=== PATIENT | female | born 1930 | race Caucasian/White ===

== ENCOUNTER 2016-08-23 20:54 | Emergency (ER) | payer MEDICARE, OTHER ==
[2016-08-23 20:54] VITALS: BMI 22.6
[2016-08-23 21:05] VITALS: TEMP 98.1
[2016-08-23 21:38] LABS: AUTOMATED EOSINOPHIL 1.5 % (0-5)
[2016-08-23 21:48] LABS: PARTIAL THROMB. TIME 21.8 SEC (22-35)
[2016-08-23 21:52] LABS: AUTOMATED BASOPHIL 1.2 % (0-2); AUTOMATED LYMPH 26.1 % (17-44); AUTOMATED MONOCYTE 15.2 % (3-10); MPV 8.8 fL (7.4-10.4)
[2016-08-23 21:55] LABS: BLOOD UREA NITROGEN 25 MG/DL (7-17); CALC CORRECTED 9.3 MG/DL (8.4-10.2); CALCIUM 8.9 MG/DL (8.4-10.2); CALCULATED OSMOLALITY 274 MOs/Kg (270-290); CHLORIDE 102 mEq/L (98-107); CPK TOTAL WITH POSSIBLE MB 62 IU/L (30-134); GLUCOSE 122 MG/DL (70-99); SODIUM LEVEL 140 mEq/L (137-146); TOTAL PROTEIN 6.7 G/DL (6.3-8.2)
--- NOTE | 2016-08-23 22:05 | DIRPT ---
CLINICAL DATA: 86-year-old female with a history of chest pain EXAM: CHEST - 2 VIEW COMPARISON: 08/16/2016, 01/11/2009, chest CT 01/11/2009 FINDINGS: Cardiomediastinal silhouette unchanged in size and contour since the comparison. Overlying mixed lucent and soft tissue density of the left heart, partially obscuring the border. Lateral view demonstrates air-fluid level with lucency and soft tissue opacity. No pneumothorax. No right-sided pleural effusion. Blunting at the left costophrenic angle. Chronic interstitial opacities on the right. No displaced fracture. Accentuated thoracic kyphotic curvature. Configuration of the vertebral bodies is relatively unchanged. IMPRESSION: Re- demonstration of hiatal hernia and associated lung changes at the left base. Superimposed small pleural effusion or sequela of aspiration pneumonia/ pneumonitis difficult to exclude. There is no evidence of a right-sided lobar pneumonia. Signed, Kashmir Lopez DO [facility] Electronically Signed By: Kashmir Lopez D.O. On: 08/23/2016 22:02
[2016-08-23] MEDS ORDERED: CEFTRIAXONE 1 GM in D5W 100 ML IV ONE (22:07)
[2016-08-23 22:23] LABS: LEUKOCYTES/URINE NEG (NEGATIVE); NITRITE/URINE NEG (NEGATIVE); URINE OCCULT BLOOD NEG (NEG/TRACE)
--- NOTE | 2016-08-23 22:40 | EDPRACDOC ---
- General Information Chief Complaint: Chest Wall Pain Stated Complaint: ABD PAIN Time Seen by Provider: 08/23/16 21:08 Information [facility] Mode of Arrival: Ambulance Home Medications: Home Medications Acetaminophen [Mapap] 1,000 mg PO Q6H PRN 08/16/16 Aspirin (Enteric Coated) [Ecotrin] 81 mg PO QHS 08/16/16 Calcium Carbonate/Vitamin D3 [Calcium 600-Vit D3 800 Tablet] 2 tab PO QAM Cholecalciferol (Vitamin D3) [Vitamin D3] 2,000 unit PO DAILY 08/16/16 Donepezil HCl 10 mg PO QHS 08/16/16 Escitalopram Oxalate [Lexapro] 10 mg PO QAM 08/16/16 Furosemide [Lasix] 40 mg PO QAM 08/16/16 Guaifenesin/Dextromethorphan [Q-Tussin Dm Syrup] 5 ml PO Q4H PRN 08/16/16 Lamotrigine 25 mg PO BID 08/16/16 Levofloxacin [Levaquin] 500 mg PO DAILY 08/16/16 Levothyroxine [Synthroid, Levoxyl] 25 mcg PO QAM 08/16/16 Lisinopril 10 mg PO QAM 08/16/16 Multivits-Min/FA/Lycopene/Lut [Certavite Sr-Antioxidant Tab] 1 tab PO QHS Omeprazole [Prilosec] 20 mg PO QAM 08/16/16 Ondansetron HCl [Zofran] 8 mg PO Q8H PRN 08/16/16 Potassium Chloride [Klor-Con M10] 10 meq PO QAM 08/16/16 Travoprost [Travatan Z] 1 drop OU QHS 08/16/16 Levofloxacin [Levaquin] 750 mg PO DAILY #7 tablet 08/23/16 Allergies/Adverse Reactions: Allergies Allergy/AdvReac Type Severity Reaction Status Date / Time No Known Allergies Allergy Verified 08/16/16 15:01 - History of Present Illness Onset: 1944 today HPI: PT PRESENTS FROM LOCAL NURSING FACILITY DUE TO CHEST PAIN. PT HAS SEVERE DEMENTIA AND UPON ARRIVAL IS NOT AWARE OF WHY SHE IS AT THE HOSPITAL AND DENIES ANY PAIN. FACILITY STATES THE PATIENT HAD BRONCHITIS LAST WEEK BUT HAD NO TREATMENT. Chest Pain Location: Reports: No Pain Pain Radiation: Reports: None Symptoms Occur: Denies: Gradually, Suddenly, At Rest, With light exertion, With heavy exertion, While asleep, Medication-ingestion, Drug-ingestion, Other PE Risk Factors: Reports: None Medications within 24 Hours: Reports: None Prehospital Care: Reports: IV, Monitor Pain Came On: Reports: No Pain Pain Status: No Pain Pain Description: Reports: None Pain Severity: None Pain Worsens With: Reports: Nothing Pain Improves With: Reports: Nothing Associated Signs and Symptoms: Reports: None ED Past Medical History - History Reviewed Yes Nurses notes reviewed and agree except as marked - Patient Medical History Neurological History: Reports: Dementia Cardiac History: Reports: Hypertension GI/ History: Reports: Gastroesophageal Reflux Musculoskeletal History: Reports: Osteoarthritis Psychological History: Comment Only: Depression (unknown) - Social Medical History Smoking Status: Current status unknown EDM Review of Systems - Review of Systems ROS Negative Except as Marked: Yes All systems reviewed and were negative except as marked - Physical Exam Constitutional: Alert, Confused (PER PATIENT NORM) Oriented to: Not Oriented (PER PT NORM) Last recorded Vital Signs: Last Vital Signs Temp 98.1 F 08/23/16 20:57 Pulse 75 08/23/16 20:57 Resp 20 08/23/16 20:57 BP 104/51 L 08/23/16 20:57 Pulse Ox 93 08/23/16 20:57 Oxygen Pulse Oxygen Saturation 93 O2 Device Room Air Oxygen Flow Rate Fraction of Inspired Oxygen ( FIO2) - HEENT Head: Normal ( normocephalic) Eye Exam: Normal (PERRL, EOMI, Sclera white) Oropharynx: Normal (Pharynx:Moist without exudate,Gums-no swelling) Nose: No Symptoms Reported (septum midline) Neck: Normal (FROM, trachea at midline) - Respiratory/Cardiovascular Respiratory: Diminished Cardiovascular: Normal (RRR without murmur, gallop or rub) - GI Auscultation: Normal (NABS) Palpation: Normal (Soft,No rebound or guarding, non distended) Tenderness: Non tender Holliday's Sign: Negative Rectal Exam: Deferred - Musculoskeletal Back: Normal (Non-Tender) Extremities: Normal (Normal tone, Pulses 2+ No cyanosis or edema, FROM) - Integumentary Skin: Normal, Warm, Dry Lymphatics: Normal (no adenopathy) - Neurologic Memory Impaired: Normal Motor Function: Normal (Normal tone, Pulses 2+ No cyanosis or edema, FROM) Cranial Nerve: Normal (CN II-X11 intact sensation, strength 5/5) Cerebellar: Normal Mood Description: Normal Perception: Normal ED Chest Pain Exam - Respiratory/Cardiovascular Respiratory: Diminished Cardiovascular/Chest: Normal Radial Pulse: Normal Femoral Pulse: Normal Pedal Pulse: Normal Carotid Arteries: Normal Edema: negative: 1+, 2+, 3+, 4+, 5, 6 Chest Palpation: Normal - Differential Diagnosis Pneumonia - Action Patient received Aspirin within last 24 hours?: Yes ASA given in the ED: No Patient received Beta Silvestre within last 24hrs: No - Results All Results Reviewed and Normal except as Highlighted below: Yes 08/23/16 21:29 08/23/16 21:29 WBC 8.4 xk/uL (3.8-10.8) 08/23/16 21: RBC 4.05 xM/uL (4.20-5.40) L 08/23/16 21:29 Hgb 12.2 g/dL (12.0-16.0) 08/23/16 21:29 Hct 35.9 % (36-47) L 08/23/16 21:29 MCV 89 fL (81-99) 08/23/16 21: MCH 30.1 pg (27-32) 08/23/16 21:29 MCHC 33.9 g/dl (33-36) 08/23/16 21:29 RDW 13.7 % (11.5-14.5) 08/23/16 21:29 Plt Count 211 xk/uL (130-400) 08/23/16 21:29 MPV 8.8 fL (7.4-10.4) 08/23/16 21:29 Neut % (Auto) 56.0 % (45-76) 08/23/16 21: Lymph % (Auto) 26.1 % (17-44) 08/23/16 21:29 Wheeler % (Auto) 15.2 % (3-10) H 08/23/16 21:29 Eos % (Auto) 1.5 % (0-5) 08/23/16 21:29 Baso % (Auto) 1.2 % (0-2) 08/23/16 21:29 Absolute Neuts (auto) 4.70 xk/uL (1.7-8.2) 08/23/16 21:29 Absolute Lymphs (auto) 2.18 xk/uL (0.65-4.75) 08/23/16 21:29 PT 10.7 SEC (9.2-11.2) 08/23/16 21:29 INR 1.0 08/23/16 21: APTT 21.8 SEC (22-35) L 08/23/16 21:29 Sodium 140 mEq/L (137-146) 08/23/16 21:29 Potassium 3.4 mEq/L (3.5-5.1) L 08/23/16 21: Chloride 102 mEq/L (98-107) 08/23/16 21: Carbon Dioxide 25 mMOL/L (22-33) 08/23/16 21: Anion Gap 16 mEq/L (8-16) 08/23/16 21:29 BUN 25 MG/DL (7-17) H 08/23/16 21:29 Creatinine 1.40 MG/DL (0.52-1.04) H 08/23/16 21:29 Estimated GFR (MDRD) 36 mL/min (>=60) L 08/23/16 21: Glucose 122 MG/DL (70-99) H 08/23/16 21: Calculated Osmolality 274 MOs/Kg (270-290) 08/23/16 21:29 Calcium 8.9 MG/DL (8.4-10.2) 08/23/16 21: Corrected Calcium 9.3 MG/DL (8.4-10.2) 08/23/16 21: Total Bilirubin 0.4 MG/DL (0.2-1.3) 08/23/16 21:29 AST 29 IU/L (14-36) 08/23/16 21: ALT 41 IU/L (9-52) 08/23/16 21: Alkaline Phosphatase 75 IU/L (55-165) 08/23/16 21:29 Creatine Kinase 62 IU/L (30-134) 08/23/16 21:29 Troponin I < 0.01 ng/mL (<.04) 08/23/16 21:29 Chl-R-Tomxtgseyik Pept 590 pg/mL (0-1800) 08/23/16 21:29 Total Protein 6.7 G/DL (6.3-8.2) 08/23/16 21:29 Albumin 3.6 G/DL (3.5-5.0) 08/23/16 21:29 Urine Color Yellow 08/23/16 22:06 Urine Clarity Clear 08/23/16 22:06 Urine pH 6.0 (5.0-8.0) 08/23/16 22:06 Ur Specific [place] 1.010 (1.003-1.035) 08/23/16 22:06 Urine Protein Neg (NEG/TRACE) 08/23/16 22:06 Urine Glucose (UA) Neg (NEGATIVE) 08/23/16 22:06 Urine Ketones Neg (NEGATIVE) 08/23/16 22:06 Urine Occult Blood Neg (NEG/TRACE) 08/23/16 22:06 Urine Nitrite Neg (NEGATIVE) 08/23/16 22:06 Urine Bilirubin Neg (NEGATIVE) 08/23/16 22:06 Urine Urobilinogen <2.0 MG/DL (0-1) 08/23/16 22:06 Ur Leukocyte Esterase Neg (NEGATIVE) 08/23/16 22:06 Ur Epithelial Cells 2+ 08/23/16 22:06 Lab Results 08/23/16 08/23/16 08/23/16 22:06 21:29 21:29 WBC 8.4 RBC 4.05 L Hgb 12.2 Hct 35.9 L MCV 89 MCH 30.1 MCHC 33.9 RDW 13.7 Plt Count 211 MPV 8.8 Neut % (Auto) 56.0 Lymph % (Auto) 26.1 Wheeler % (Auto) 15.2 H Eos % (Auto) 1.5 Baso % (Auto) 1.2 Absolute Neuts (auto) 4.70 Absolute Lymphs (auto) 2.18 PT 10.7 INR 1.0 APTT 21.8 L Sodium Potassium Chloride Carbon Dioxide Anion Gap BUN Creatinine Estimated GFR (MDRD) Glucose Calculated Osmolality Calcium Corrected Calcium Total Bilirubin AST ALT Alkaline Phosphatase Creatine Kinase Troponin I Foh-P-Unroiiriyhm Pept Total Protein Albumin Urine Color Yellow Urine Clarity Clear Urine pH 6.0 Ur Specific [place] 1.010 Urine Protein Neg Urine Glucose (UA) Neg Urine Ketones Neg Urine Occult Blood Neg Urine Nitrite Neg Urine Bilirubin Neg Urine Urobilinogen <2.0 Ur Leukocyte Esterase Neg Ur Epithelial Cells 2+ 08/23/16 21:29 WBC RBC Hgb Hct MCV MCH MCHC RDW Plt Count MPV Neut % (Auto) Lymph % (Auto) Wheeler % (Auto) Eos % (Auto) Baso % (Auto) Absolute Neuts (auto) Absolute Lymphs (auto) PT INR APTT Sodium 140 Potassium 3.4 L Chloride 102 Carbon Dioxide 25 Anion Gap 16 BUN 25 H Creatinine 1.40 H Estimated GFR (MDRD) 36 L Glucose 122 H Calculated Osmolality 274 Calcium 8.9 Corrected Calcium 9.3 Total Bilirubin 0.4 AST 29 ALT 41 Alkaline Phosphatase 75 Creatine Kinase 62 Troponin I < 0.01 Fsf-B-Rzabjkjiism Pept 590 Total Protein 6.7 Albumin 3.6 Urine Color Urine Clarity Urine pH Ur Specific [place] Urine Protein Urine Glucose (UA) Urine Ketones Urine Occult Blood Urine Nitrite Urine Bilirubin Urine Urobilinogen Ur Leukocyte Esterase Ur Epithelial Cells Laboratory Results - last 24 hr 08/23/16 08/23/16 08/23/16 21:29 21:29 21:29 WBC 8.4 RBC 4.05 L Hgb 12.2 Hct 35.9 L MCV 89 MCH 30.1 MCHC 33.9 RDW 13.7 Plt Count 211 MPV 8.8 Neut % (Auto) 56.0 Lymph % (Auto) 26.1 Wheeler % (Auto) 15.2 H Eos % (Auto) 1.5 Baso % (Auto) 1.2 Absolute Neuts (auto) 4.70 Absolute Lymphs (auto) 2.18 PT 10.7 INR 1.0 APTT 21.8 L Sodium 140 Potassium 3.4 L Chloride 102 Carbon Dioxide 25 Anion Gap 16 BUN 25 H Creatinine 1.40 H Estimated GFR (MDRD) 36 L Glucose 122 H Calculated Osmolality 274 Calcium 8.9 Corrected Calcium 9.3 Total Bilirubin 0.4 AST 29 ALT 41 Alkaline Phosphatase 75 Creatine Kinase 62 Troponin I < 0.01 Orz-F-Xgaiwvfkmaf Pept 590 Total Protein 6.7 Albumin 3.6 Urine Color Urine Clarity Urine pH Ur Specific [place] Urine Protein Urine Glucose (UA) Urine Ketones Urine Occult Blood Urine Nitrite Urine Bilirubin Urine Urobilinogen Ur Leukocyte Esterase Ur Epithelial Cells 08/23/16 22:06 WBC RBC Hgb Hct MCV MCH MCHC RDW Plt Count MPV Neut % (Auto) Lymph % (Auto) Wheeler % (Auto) Eos % (Auto) Baso % (Auto) Absolute Neuts (auto) Absolute Lymphs (auto) PT INR APTT Sodium Potassium Chloride Carbon Dioxide Anion Gap BUN Creatinine Estimated GFR (MDRD) Glucose Calculated Osmolality Calcium Corrected Calcium Total Bilirubin AST ALT Alkaline Phosphatase Creatine Kinase Troponin I Nwf-Q-Objaqrarzup Pept Total Protein Albumin Urine Color Yellow Urine Clarity Clear Urine pH 6.0 Ur Specific [place] 1.010 Urine Protein Neg Urine Glucose (UA) Neg Urine Ketones Neg Urine Occult Blood Neg Urine Nitrite Neg Urine Bilirubin Neg Urine Urobilinogen <2.0 Ur Leukocyte Esterase Neg Ur Epithelial Cells 2+ Laboratory Results 08/23/16 21:29 08/23/16 21:29 - EKG EKG #1 EKG Time: 21:33 -: Yes EKG interpreted by me Rate: bpm: 78 [place]: Normal Rhythm: NSR Block: 1, AVB Hypertrophy: None ST: Normal Decision Time to Discharge: 22:43 - Departure Disposition: Home Condition: Stable Final Diagnosis: Pneumonia Instructions: Pneumonia (ED) Education/Counseling Given To: Patient, [employer] Education/Counseling Given Regarding: Diagnosis, Treatment, Prognosis, Follow Up Referrals: Al Tran MD [Primary Care Provider] - One Week Prescriptions: Levofloxacin [Levaquin] 750 mg PO DAILY #7 tablet Additional Instructions: INCREASE FLUID INTAKE. FOLLOW UP WITH PRIMARY CARE PROVIDER NEXT WEEK. TAKE ALL ANTIBIOTICS PRESCRIBED. RETURN TO THE ED FOR WORSENING SYMPTOMS OR CONCERNS.
[2016-08-24 00:04] VITALS: BP 120/62; PULSE 79
== END 2016-08-24 00:13 ==
LOC: ED 20:54
DX: J18.9 Pneumonia, unspecified organism (principal); F03.90 Unspecified dementia, unspecified severity, without behavioral disturbance, psychotic disturbance, mood disturbance, and anxiety; I10 Essential (primary) hypertension; K21.9 Gastro-esophageal reflux disease without esophagitis; Z79.899 Other long term (current) drug therapy
CPT/HCPCS: 36415; 71020; 80053; 81001; 82550; 83880; 84484; 85025; 85610; 85730; 93005; 96365; 99284; J0696; J7060